=== PATIENT | female | born 1965 | race Two or more races ===

== ENCOUNTER 2017-09-07 11:55 | Emergency (ER) | payer OTHER ==
[~2017-09-07] VITALS: Ht 152.4 cm; Wt 66.2 kg
[2017-09-07 11:59] VITALS: Ht 152.4 cm; Wt 66.2 kg
[2017-09-07 14:32] VITALS: BP 121/74
== END 2017-09-07 14:32 | disposition home or self-care (01) ==
LOC: ED 11:55
DX: S61.011A Laceration without foreign body of right thumb without damage to nail, initial encounter (principal); E11.9 Type 2 diabetes mellitus without complications; W45.8XXA Other foreign body or object entering through skin, initial encounter; Y93.G1 Activity, food preparation and clean up; Y92.89 Other specified places as the place of occurrence of the external cause; Y99.8 Other external cause status
CPT/HCPCS: 90715; J2001